=== PATIENT | female | born 1945 | race Hispanic/Latino ===

== ENCOUNTER 2021-05-04 13:18 | Emergency (ER) | payer OTHER ==
[~2021-05-04] VITALS: Ht 149.9 cm; Wt 88.5 kg
[2021-05-04 16:43] VITALS: BP 118/68
== END 2021-05-04 16:46 | disposition home or self-care (01) ==
LOC: EDH 13:18
DX: S40.011A Contusion of right shoulder, initial encounter (principal); S80.01XA Contusion of right knee, initial encounter; M06.9 Rheumatoid arthritis, unspecified; I10 Essential (primary) hypertension; Z98.890 Other specified postprocedural states; W18.39XA Other fall on same level, initial encounter; Y93.89 Activity, other specified; Y92.89 Other specified places as the place of occurrence of the external cause; Y99.8 Other external cause status
CPT/HCPCS: 73030; 73562